=== PATIENT | female | born 1980 | race Two or more races ===

== ENCOUNTER 2020-04-01 06:00 | Day surgery (SDC) | payer OTHER ==
[2020-04-01] MEDS ORDERED: CARAFATE1 GM/10 ML PO (09:54)
== END 2020-04-01 11:30 | disposition home or self-care (01) ==
LOC: AMB-ENDOS 06:00
PROVIDERS: ATTEND Surgery
DX: K29.50 Unspecified chronic gastritis without bleeding (principal); K44.9 Diaphragmatic hernia without obstruction or gangrene